=== PATIENT | female | born 1940 | race Caucasian/White ===

== ENCOUNTER → 2016-09-05 | Outpatient (CLI) | payer OTHER ==
[~2016-09-05] MED LIST: ASPIRIN PO; ASPIRIN81 M2 PO; FLEXERIL10 MG PO; GABAPENTIN600 MG PO; HYDRALAZINE HCL25 MG PO; HYDRALAZINE PO; K-DUR20 ME1 PO; KLOR CON PO; LASIX PO; LASIX20 MG PO; LOSARTAN PO; LOSARTAN POTASS25 MG PO; LOSARTAN-HCTZ1 EAC1 PO; METOPROLOL PO; METOPROLOL SUC100 MG PO; OXCARBAZEPINE PO; OXCARBAZEPINE600 MG PO; VOLTAREN75 MG PO; ZOFRAN ODT4 MG PO
--- NOTE | ~2016-09-05 | MR113 ---
[facility] A Service of [facility] & [facility] RADIOLOGY TEXT RESULTS PATIENT: SOFIA MCCANN [facility] UNIT #: [id number] AGE: [address]: Silviano Milan MD SEX: F ORDER DR: [id number] [facility] [address] [place], [place] [address] [id number] O MR#: [id number] Acc #: [id number] NAME: SOFIA MCCANN. : 1940 SEX: F STUDY DATE/TIME: 09/05/2016 17:20 UNIT: [facility] ROOM: STUDY DESCRIPTION: MR Lumbar Wo Contrast Attending Physician: Silviano Milan M.D. Referring Physician: Silviano Milan M.D. Ordering Physician: Silviano Milan M.D. Primary Care Physician: Katia Vogt M.D. MRI CENTER REPORT This report is preliminary unless electronic signature is present. EXAM Lumbar spine MRI, no contrast, 09/05/2016 HISTORY Low back pain radiating to left leg for 1 month. FINDINGS There is a grade I 4-5 anterolisthesis without pars defect. There is a gentle levoscoliosis. 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 There is also a grade I 5-1 anterolisthesis but without convincing pars defect. Marrow signal is otherwise normal, and the distal cord and conus are normal in position and appearance. Paraspinous tissues are unremarkable. At 1-2, the disc, canal and foramina are normal. At 2-3, there is a disc bulge and minimal canal narrowing, and mild right and [id number] left foraminal narrowing. At 3-4, there is a disc bulge and facet arthropathy, and borderline canal narrowing and borderline right and mild left foraminal narrowing. At 4-5, there is a right paracentral upward extrusion. This contributes to moderate canal stenosis at 4-5 and particular impingement on the right L5 root prior to its exit from the lateral recess. There is moderate to severe right and left foraminal stenosis. At 5-1, there is disc and endplate change and facet arthropathy and minimal canal stenosis, and mild right and left foraminal stenosis. IMPRESSION [facility] A Service of [facility] & [facility] RADIOLOGY TEXT RESULTS PATIENT: SOFIA MCCANN [facility] UNIT #: [id number] AGE: [address]: Silviano Milan MD SEX: F ORDER DR: 1. Degenerative changes with multilevel canal and foraminal narrowing. Overall canal stenosis is moderate, or even moderate to severe at 4-5, further exacerbated by a right paracentral upward disc extrusion which extends up a distance of about 14 mm behind the L4 vertebral body and impinges particularly on the right L5 root prior to its exit from the thecal sac. 2. There is additional canal and foraminal narrowing at other levels, see [id number] details. 3. There is grade I 4-5 anterolisthesis at 4-5 and 5-1 but no convincing pars defect. 4. There is also a focus of faint abnormal marrow signal at T12 about 1 cm in size. 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 Dictated by... Jakub Vargas M.D. THIS IS AN ELECTRONICALLY VERIFIED REPORT Jakub Vargas M.D. at 09/09/2016 4:34 PM TEV/psc TD: 09/06/2016 00:19 JOB #: [id number] MRI CENTER REPORT COPY
== END | disposition home or self-care (01) ==
LOC: CMRI 16:45
DX: M54.5 Low back pain (principal); M47.816 Spondylosis without myelopathy or radiculopathy, lumbar region; M48.06 Spinal stenosis, lumbar region; M51.26 Other intervertebral disc displacement, lumbar region; M43.16 Spondylolisthesis, lumbar region; M43.17 Spondylolisthesis, lumbosacral region
CPT/HCPCS: 72148

== ENCOUNTER → 2016-09-23 | Day surgery (SDC) | payer OTHER ==
[~2016-09-23] MED LIST changes: +ASPIRINEC PO; +ATORVASTATIN CA10 MG PO; +FUROSEMIDE40 MG PO; +HYDRALAZINE HCL50 MG PO; +KCL PO; +MOBIC15 MG PO; +MULTI-VITAMIN1 EACH PO; +TOPROL XL PO
--- NOTE | ~2016-09-23 | OR ---
Unit #: [id number] #: [id number] Patient: SOFIA MCCANN [id number] [address] [address] [id number] O MR#: [id number] NAME: SOFIA MCCANN. ROOM: Date of Procedure: 09/23/2016 Admission Date: 09/23/2016 Surgeon: Fidencio Will M.D. : 1940 Attending Physician: Salty Will Primary Care Physician: Katia Vogt M.D. SURGERY CENTER OPERATIVE NOTE PROCEDURE PERFORMED Lumbar epidural steroid injection under x-ray guided needle placement with provider administered conscious sedation. PREOPERATIVE DIAGNOSES 1. Acute lumbar radiculitis. 2. Spinal stenosis, lumbosacral spine. 3. Herniated disk, L4-L5. 4. Anterolisthesis, L4-L5. 5. Degenerative joint disease, lumbosacral spine. 6. Degenerative disk disease, lumbosacral spine. 7. Facet arthritis, lumbosacral spine. INDICATIONS FOR PROCEDURE The patient presents today with a 2 to 3 months history of crescendo pattern lumbar radicular pain, which has failed to respond to conservative measures. She is in possession of MRI report, which shows an L4-L5 herniated disk, although the disk is herniated more to the right than the left and the patient's symptomatology is on the left. After discussing the risks and benefits of proceeding today with a lumbar approach epidural steroid injection and return to this clinic on 10/23/2016 for a potential second injection, the patient agreed this would be the appropriate course of action. DESCRIPTION OF PROCEDURE She was then taken to the operating room, where she was prepped and draped in a sterile manner. Standard monitors were applied. She was sedated with 2 mg of IV Versed and lumbar epidural space accessed at L4-L5 level using loss of resistance technique and x-ray guidance. Needle placement was confirmed with injection of 2 mL of Omnipaque, almost 100% of dye flow was in the inferior direction. Following successful needle placement confirmation which required 8 seconds of x-ray time, the patient received an injectate containing 2 mL normal saline, 2 mL of 0.25% bupivacaine, and 80 mg of methylprednisolone. She tolerated this procedure well. She was discharged home with followup instructions, which include return dates as described above, at which point, she will most likely have an L3-L4 initial injection with potential dual needle placement. Dictated by... Ary Ray/maryam Unit #: [id number] #: [id number] Patient: SOFIA MCCANN TD: 09/24/2016 02:25 JOB #: [id number] SURGERY CENTER OPERATIVE NOTE Page 1 of 1 X Salty Will MD X PROCEDURE OPERATIVE NOTE
== END | disposition home or self-care (01) ==
LOC: CCSC 09:07
DX: M51.16 Intervertebral disc disorders with radiculopathy, lumbar region (principal); M48.07 Spinal stenosis, lumbosacral region; M43.16 Spondylolisthesis, lumbar region; M47.897 Other spondylosis, lumbosacral region; M51.37 Other intervertebral disc degeneration, lumbosacral region; I25.2 Old myocardial infarction; Z85.820 Personal history of malignant melanoma of skin
CPT/HCPCS: J1040; J2250

== ENCOUNTER → 2016-10-14 | Day surgery (SDC) | payer OTHER ==
--- NOTE | ~2016-10-14 | OR ---
Unit #: [id number] #: [id number] Patient: SOFIA MCCANN [id number] [address] [address] [id number] O MR#: [id number] NAME: SOFIA MCCANN. ROOM: Date of Procedure: 10/14/2016 Admission Date: 10/14/2016 Surgeon: Fidencio Will M.D. : 1940 Attending Physician: Fidencio Will M.D. Primary Care Physician: Katia Vogt M.D. SURGERY CENTER OPERATIVE NOTE PROCEDURE PERFORMED Lumbar epidural steroid injection under x-ray guided needle placement with provider administered conscious sedation. PREOPERATIVE DIAGNOSES 1. Acute lumbar radiculitis. 2. Spinal stenosis, lumbosacral spine. 3. Herniated disk, L3-L4. 4. Herniated disk, L4-L5. 5. Listhesis, L4-L5. 6. Degenerative joint disease, lumbosacral spine. 7. Degenerative disk disease, lumbosacral spine. INDICATIONS FOR PROCEDURE The patient presents today status post one previous lumbar approach epidural steroid injection for an acute radiculitis, which had failed to respond to conservative therapy. She states she got good results, almost complete resolution of her symptoms initially; however, over the ensuing time between her initial injection and her return today, she has had a crescendo pattern and return of her symptoms, which again have broken through her ongoing continuous conservative measures. She presents today requesting a second epidural steroid injection. After discussing risks and benefits of proceeding today with a lumbar approach epidural steroid injection at the L3-L4 level differing from the L4-L5 previously injected, the patient agreed this would be the appropriate course of action. DESCRIPTION OF PROCEDURE She was then taken to the operating room, where she was prepped and draped in a sterile manner. Standard monitors were applied. She was sedated initially with 2 mg of IV Versed and required an additional 2 mg of IV Versed throughout the duration of procedure. Lumbar epidural space accessed at L3-L4 level using loss of resistance technique and x-ray guidance. Needle placement was confirmed with injection of 2 mL of Omnipaque. Total x-ray time for this needle placement was 5 seconds. There was good superior and inferior flow at this L3-L4 level needle placement. Following successful needle placement confirmation, the patient received an injectate containing 4 mL normal saline and 80 mg of methylprednisolone. She tolerated this procedure well. She was discharged home with followup instructions, which include an offer to return to this clinic as early as 01/29/2017 if we could be of further service to her. She was instructed if she was asymptomatic at that time to simply not keep that appointment and to follow up with this clinic or her referring provider and as such point as we could be of further service Unit #: [id number] #: [id number] Patient: SOFIA MCCANN to her. She was instructed if she did not get adequate relief from this injection, she was to follow up with her primary and/or referring provider for more aggressive referral regarding her pain. Dictated by... Ary Ray/maryam TD: 10/14/2016 23:13 JOB #: [id number] SURGERY CENTER OPERATIVE NOTE Page 1 of 1 X Salty Will MD X PROCEDURE OPERATIVE NOTE
== END | disposition home or self-care (01) ==
LOC: CCSC 07:52
PROVIDERS: Anesthesiology
PROC: 3E0S3BZ Introduction of Anesthetic Agent into Epidural Space, Percutaneous Approach (ICD-10-PCS; 2016-10-14)
PROC: 3E0S33Z Introduction of Anti-inflammatory into Epidural Space, Percutaneous Approach (ICD-10-PCS; principal; 2016-10-14 09:00)
DX: M51.16 Intervertebral disc disorders with radiculopathy, lumbar region (principal); M48.07 Spinal stenosis, lumbosacral region; M43.16 Spondylolisthesis, lumbar region; M51.17 Intervertebral disc disorders with radiculopathy, lumbosacral region; M47.27 Other spondylosis with radiculopathy, lumbosacral region; N39.3 Stress incontinence (female) (male); I25.2 Old myocardial infarction
CPT/HCPCS: J1040; J2250

== ENCOUNTER → 2017-02-03 | Outpatient (CLI) | payer OTHER ==
--- NOTE | ~2017-02-03 | MY29 ---
[facility] A Service of [facility] & [facility] RADIOLOGY TEXT RESULTS PATIENT: SOFIA MCCANN LOCATION: [facility] : 42 UNIT #: [id number] AGE: [address]: Katia Vogt MD SEX: F ORDER DR: [id number] [facility] [address] [place], [place] [address] [id number] O MR#: [id number] Acc #: [id number] NAME: SOFIA MCCANN. : 1940 SEX: F STUDY DATE/TIME: 02/03/2017 10:56 UNIT: [facility] ROOM: STUDY DESCRIPTION: MY [facility] SCREENING W/ CAD BILAT Attending Physician: Katia Vogt M.D. Referring Physician: Katia Vogt M.D. Ordering Physician: Katia Vogt M.D. Primary Care Physician: Katia Vogt M.D. MEDICAL IMAGING REPORT This report is preliminary unless electronic signature is present EXAM Digital screening mammogram, 02/03/2017 HISTORY 76-year-old woman no risk elevation. Previous right breast biopsy. Annual screening. COMPARISON Mammograms date to 10/14/2005 with most recent 01/24/2016. FINDINGS Digital imaging of each breast was completed utilizing screening protocol. Biopsy marker was placed on the right breast. Review includes FDA-approved CAD device. Breast parenchyma is heterogeneous with residual fibroglandular opacities in each breast. There are several calcifications with benign characteristics noted predominantly in the right breast. I see no suspicious mass. There are no suspicious microcalcifications and no architectural deformity. IMPRESSION Stable benign mammogram. Annual screening recommended. Patients over the age of 40 are entered into a reminder system with target due date for the next mammogram. A result letter will also be sent to the patient. BIRADS: 2 Benign Finding Dictated by... Prem Ramirez M.D. THIS IS AN ELECTRONICALLY VERIFIED REPORT Prem Ramirez M.D. at 02/04/2017 8:05 AM [facility] A Service of [facility] & [facility] RADIOLOGY TEXT RESULTS PATIENT: SOFIA MCCANN LOCATION: [facility] : [birth year] UNIT #: [id number] AGE: [address]: Katia Vogt MD SEX: F ORDER DR: TRACEE/elizabeth TD: 02/03/2017 19:54 JOB #: [id number] MEDICAL IMAGING REPORT Page 1 of 1 COPY
== END | disposition home or self-care (01) ==
LOC: CWCC 01-29 12:15
DX: Z12.31 Encounter for screening mammogram for malignant neoplasm of breast (principal); Z98.890 Other specified postprocedural states
CPT/HCPCS: G0202